=== PATIENT | male | born 1970 | race Caucasian/White ===

== ENCOUNTER 2020-09-27 12:30 | Observation (INO) | payer MEDICAID, SELFPAY ==
[2020-09-27 12:42] VITALS: BMI 28.5
[2020-09-27 12:44] VITALS: BP 108/81; PULSE 96; RESP 18; TEMP 36.3; O2SAT 96
[2020-09-27] MEDS: chlorPROMazine 50 mg Tablet PO (17:34)
[2020-09-27] MEDS: LORazepam 1 mg Tablet PO (17:34)
[2020-09-27 19:43] VITALS: BP 93/58; PULSE 89; RESP 16; TEMP 37.1; O2SAT 90
[2020-09-27] MEDS: guanfacine 1 mg Tablet 2 MG PO (19:52)
[2020-09-27] MEDS: divalproex ER 500 mg Tablet (24H) PO (19:52)
[2020-09-27] MEDS: divalproex ER 250 mg Tablet (24H) PO (19:52)
[2020-09-27] MEDS: benztropine 1 mg Tablet PO (19:53)
[2020-09-28 06:00] VITALS: BP 89/58; PULSE 67; RESP 16; TEMP 36.6; O2SAT 98
[2020-09-28] MEDS: benztropine 1 mg Tablet PO (08:14)
[2020-09-28] MEDS: docusate sodium 100 mg Capsule 200 MG PO (08:14)
[2020-09-28] MEDS: LORazepam 1 mg Tablet PO (08:14)
[2020-09-28] MEDS: chlorPROMazine 50 mg Tablet PO (08:14)
[2020-09-28] MEDS: paliperidone ER 6 mg Tablet PO (08:14)
--- NOTE | 2020-09-28 09:48 | P.SS_ITS ---
Short Stay Summary Providers Date of Admit/Discharge: 09/28/20 Attending Provider: iKki White DO Primary Care Provider: Sudarshan Araujo MD Chief Complaint: Behavioral disturbance, Hx TBI, schizophrenia HPI History of Present Illness Sidney Rosales is a 50 year old male with history of traumatic brain injury at 11 months old with reported history of schizophrenia presenting to inpatient psychiatry from an outlying facility secondary to reported worsening paranoia and disruptive behavior. Patient states that he was upset because he felt like he was being given the wrong medication and it was causing him to have constipation and difficulty using the bathroom. He denies any depressive symptoms, denies any suicidal ideation. He denies any auditory or visual hallucinations. He does report some overvalued ideas per above but denies any delusions. He denies any homicidal ideation or violent thoughts toward others to include staff at assisted. Patient reports that he was upset and that he would never harm anyone. He also reports no history of suicide attempts and states that he would never harm himself. Patient has a guardian and currently resides in a assisted. Review of Systems General: Reports: 10 or more systems reviewed and unremarkable except in HPI and below Home Meds/Allergies Home Medications and Allergies Home Medications Medication Instructions Recorded Confirmed Type Colace 200 mg PO DAILY 09/27/20 09/27/20 History Milk of Magnesia 30 ml PO DAILY 09/27/20 09/27/20 History acetaminophen [Tylenol] 325 mg PO Q4H PRN 09/27/20 09/27/20 History alum-mag hydroxide-simeth [Mylanta] 20 ml PO TID PRN 09/27/20 09/27/20 History benztropine 1 mg PO TID 09/27/20 09/27/20 History bisacodyl 10 mg PO DAILY PRN 09/27/20 09/27/20 History calcium polycarbophil 1,250 mg PO BID 09/27/20 09/27/20 History chlorpromazine 50 mg PO BID 09/27/20 09/27/20 History divalproex 250 mg PO BEDTIME 09/27/20 09/27/20 History divalproex 500 mg PO BEDTIME 09/27/20 09/27/20 History guaifenesin [Robitussin] 200 mg PO Q4H PRN 09/27/20 09/27/20 History guanfacine 2 mg PO BEDTIME 09/27/20 09/27/20 History ibuprofen 800 mg PO PRN 09/27/20 09/27/20 History lactulose [Enulose] 30 ml PO PRN 09/27/20 09/27/20 History linaclotide [Linzess] 145 mcg PO DAILY 09/27/20 09/27/20 History lisdexamfetamine [Vyvanse] 30 mg PO DAILY 09/27/20 09/27/20 History lorazepam 1 mg PO BID 09/27/20 09/27/20 History lorazepam [Ativan] 1 mg PO Q4H PRN 09/27/20 09/27/20 History magnesium citrate 150 ml PO DAILY PRN 09/27/20 09/27/20 History paliperidone 6 mg PO DAILY 09/27/20 09/27/20 History Allergies Allergy/AdvReac Type Severity Reaction Status Date / Time fexofenadine [From Sofie] Allergy ALGY-Wheezi Verified 09/27/20 16:20 ng PFSH Acute PFSH: Medical History (Updated 09/28/20 @ 09:55 by Kiki White DO) Schizophrenia Vitals/I&O/Wt Last Vital Signs Temp 97.9 F 09/28/20 06:00 Pulse 67 09/28/20 06:00 Resp 16 09/28/20 06:00 BP 89/58 09/28/20 06:00 Pulse Ox 98 09/28/20 06:00 Weight last 48 hrs Weight 95.254 kg Physical Exam Narrative: EXAM NARRATIVE: Physical examination from outlying emergency department was reviewed, no changes. Mental status evaluation: Appears stated age, unshaven, calm, cooperative, interactive, good eye contact Psychomotor activity is neither increased nor decreased, no agitation Speech is somewhat slow at times, spontaneous, fair articulation, not pressured I feel good, full range of affect, not labile Alert and oriented to person, place, time, situation Memory and concentration appear to be fair per interview Intellectual functioning appears to be average based on vocabulary, interview Thought process, occasional delays, linear, no flight of ideas, no looseness of associations Thought content, no delusions, no hallucinations, no suicidal or homicidal ideation Insight and judgment appear to be fair Hospital Course Hospital Course Patient did not demonstrate any violent or disruptive behavior since admission to this unit yesterday afternoon. He continues to not endorse any mood symptoms or suicidal ideation or thoughts about harming himself or others. He did not demonstrate any disorganization of speech or behavior and did not appear to be attending to any internal stimuli. Patient was restarted on his home medications which he tolerated well with no reports of any medication side effects. Patient's guardian has been in contact with nursing station and communicated that she felt that patient was back to baseline and that misunderstanding at assisted likely led to behavioral disturbance. Discharge Summary Patient was not suicidal or homicidal at the time of discharge and did not appear to pose an imminent threat of harm to self or others. Diagnoses at Discharge Discharge Diagnosis (1) Mild major neurocognitive disorder due to traumatic brain injury with behavioral disturbance: Status: Acute Discharge Plan Discharge Patient Disposition: Home Condition: Stable Prescriptions: No Action paliperidone 6 mg tablet extended release 24hr 6 mg PO DAILY RF: 0 lorazepam 1 mg tablet 1 mg PO BID RF: 0 Vyvanse 30 mg capsule 30 mg PO DAILY RF: 0 Linzess 145 mcg Capsule 145 mcg PO DAILY RF: 0 chlorpromazine 50 mg tablet 50 mg PO BID RF: 0 calcium polycarbophil 625 mg Tablet 1,250 mg PO BID RF: 0 benztropine 1 mg tablet 1 mg PO TID RF: 0 divalproex 500 mg tablet extended release 24 hr 500 mg PO BEDTIME RF: 0 divalproex 250 mg tablet extended release 24 hr 250 mg PO BEDTIME RF: 0 guanfacine 2 mg tablet 2 mg PO BEDTIME RF: 0 Colace 200 mg PO DAILY RF: 0 Milk of Magnesia 30 ml PO DAILY RF: 0 Enulose 10 gram/15 mL solution 30 ml PO PRN RF: 0 ibuprofen 800 mg tablet 800 mg PO PRN RF: 0 Tylenol 325 mg Tablet 325 mg PO Q4H PRN (Reason: Pain) RF: 0 Mylanta 200-200-20 mg/5 mL Suspension 20 ml PO TID PRN (Reason: Indigestion) RF: 0 Ativan 1 mg Tablet 1 mg PO Q4H PRN (Reason: Anxiety) RF: 0 magnesium citrate Solution 150 ml PO DAILY PRN (Reason: Constipation) RF: 0 Robitussin 100 mg/5 mL Liquid 200 mg PO Q4H PRN (Reason: Cough) RF: 0 bisacodyl 5 mg Tablet 10 mg PO DAILY PRN (Reason: Constipation) RF: 0 Referrals: [facility] [Other] Attestations Medical Necessity Statement*: Patient required psychiatric hospitalization for observation given recent behavioral disturbance with unclear etiology to [facility] for need for possible medication stabilization Time Spent in Patient Care*: greater than 30 min Status at Discharge: Cognitive status at discharge: mildly impaired cognition , Behavioral status at discharge: cooperative , Functional status at discharge: independent ambulation Overall status at discharge: patient is back to baseline Quality Metrics Clinical Quality Measures: During this hospital stay, did patient experience: None Coding Level of Care Code Acute [facility] for [facility] Fwd Diagnoses Mild major neurocognitive disorder due to traumatic brain injury with behavioral disturbance S06.9X9S; F02.81
[2020-09-28 10:14] VITALS: BP 89/58; PULSE 67; RESP 16; TEMP 36.6; O2SAT 98
== END 2020-09-28 14:33 | disposition home or self-care (01) ==
PROVIDERS: Admitting Provider Psychiatry & Neurology Psychiatry; PCP Psychiatry & Neurology Psychiatry; Visit Provider Psychiatry & Neurology Psychiatry
DX: S06.9X9S Unspecified intracranial injury with loss of consciousness of unspecified duration, sequela (principal); X58.XXXS Exposure to other specified factors, sequela; F02.81 Dementia in other diseases classified elsewhere, unspecified severity, with behavioral disturbance; F20.9 Schizophrenia, unspecified
CPT/HCPCS: 12345; G0378; G0379; Q0161